=== PATIENT | male | born 2000 | race Caucasian/White ===

== ENCOUNTER 2018-08-09 18:56 | Emergency (ER) | payer SELFPAY | END 2018-08-09 19:32 | disposition left against medical advice (07) | LOC: UCCORT 18:56 | DX: Z53.21 Procedure and treatment not carried out due to patient leaving prior to being seen by health care provider (principal) ==

== ENCOUNTER 2018-08-09 19:30 | Emergency (ER) | payer SELFPAY ==
[2018-08-09 21:20] VITALS: BP 120/67
[2018-08-09] MEDS ORDERED: predniSONE TAB* 20 MG PO ONE (21:40)
--- NOTE | 2018-08-09 21:45 | UC ---
Skin Complaint HPI - HPI Summary HPI Summary: 18 yo male with bilat hand rash x weeks to mos works at [employer] wears non latex gloves exposed to a lot of grease has eczema - History of Current Complaint Chief Complaint: UCSkin Time Seen by Provider: 08/09/18 21:31 Stated Complaint: BILATERAL HANDS/SKIN COMPLAINT Hx Obtained From: Patient Onset/Duration: Sudden Onset, Lasting Weeks Timing: Constant Onset Severity: Mild Current Severity: Moderate Pain Intensity: 3 Pain Scale Used: 0-10 Numeric Location: Hand (Right) Character: Swelling, Pruritus, Redness, Painful Aggravating Factor(s): Touch, Other - gloves Alleviating Factor(s): Nothing Associated Signs & Symptoms: Positive: Rash - Allergy/Home Medications Allergies/Adverse Reactions: Allergies Allergy/AdvReac Type Severity Reaction Status Date / Time Penicillins Allergy Unknown Verified 08/09/18 21:21 Reaction Details PMH/Surg Hx/FS Hx/Imm Hx Previously Healthy: Yes - Surgical History Surgical History: None - Family History Known Family History: Positive: Hypertension - Social History Alcohol Use: Occasionally Substance Use Type: Marijuana Substance Use Comment - Amount & Last Used: occasionally Smoking Status (MU): Heavy Every Day Tobacco Smoker Amount Used/How Often: 1/2 ppd Length of Time of Smoking/Using Tobacco: 3 years Have You Smoked in the Last Year: Yes Review of Systems All Other Systems Reviewed And Are Negative: Yes Constitutional: Positive: Negative Skin: Positive: Rash Eyes: Positive: Negative ENT: Positive: Negative Respiratory: Positive: Negative Cardiovascular: Positive: Negative Gastrointestinal: Positive: Negative Genitourinary: Positive: Negative Motor: Positive: Negative Neurovascular: Positive: Negative Musculoskeletal: Positive: Negative Neurological: Positive: Negative Psychological: Positive: Negative Physical Exam Triage Information Reviewed: Yes Appearance: Well-Appearing, No Pain Distress, Well-Nourished Vital Signs: Initial Vital Signs Temp 98.2 F 08/09/18 21:11 Pulse 105 08/09/18 21:11 Resp 18 08/09/18 21:11 BP 120/67 08/09/18 21:11 Pulse Ox 93 08/09/18 21:11 Vital Signs Reviewed: Yes ENT: Positive: Hearing grossly normal. Negative: Nasal congestion, Nasal drainage, Trismus, Muffled voice, Hoarse voice Dental Exam: Normal Neck: Positive: Supple, Nontender Respiratory: Positive: Lungs clear, Normal breath sounds, No respiratory distress, No accessory muscle use Cardiovascular: Positive: RRR, No Murmur Neurological: Positive: Alert Psychological Exam: Normal Skin Exam: Other - rash c/w ezema both antecubital fossas, bilat hand dermatitis feet- no rash Course/Dx - Diagnoses Provider Diagnosis: Irritant hand dermatitis, Eczema Discharge - Sign-Out/Discharge Documenting (check all that apply): Patient Departure All imaging exams completed and their final reports reviewed: No Studies - Discharge Plan Condition: Stable Disposition: HOME Prescriptions: predniSONE [Deltasone 20 MG TAB] 20 - 40 mg PO DAILY #15 tab Triamcinolone 0.5% CREAM(NF) [Triamcinolone 0.5% CREAM*] 1 applic TOPICAL DAILY 21 Days #60 tube Patient Education Materials: Dermatitis (ED) Referrals: No Primary Care Phys,NOPCP [Primary Care Provider] - Kathy Link [Medical Doctor] - As Soon As Possible (ask for a [employer] appt ...Pako Bradshaw) Additional Instructions: Apply the steroid cr at night (bedtime) wear cotton gloves when asleep - Billing Disposition and Condition Condition: STABLE Disposition: Home
== END 2018-08-09 21:53 | disposition home or self-care (01) ==
LOC: UCCORT 19:30
DX: L24.9 Irritant contact dermatitis, unspecified cause (principal); F17.210 Nicotine dependence, cigarettes, uncomplicated; Z88.0 Allergy status to penicillin
CPT/HCPCS: 99202; G0463; J7512